=== PATIENT | male | born 1940 | race Caucasian/White ===

== ENCOUNTER 2018-08-05 10:38 | Emergency (ER) | payer MEDICARE, BC ==
[2018-08-05] MEDS ORDERED: Sodium Chloride 0.9% 1,000 ML IV ONE ×2 (10:46→13:08)
[2018-08-05] MEDS: Sodium Chloride 0.9% 10 ML Syringe FLUSH PRN ×2 (10:55→13:14)
[2018-08-05 10:59] VITALS: BP 100/64
--- NOTE | 2018-08-05 11:55 | EDM.PDOC ---
ED HPI GENERAL MEDICAL PROBLEM - General Chief Complaint: Syncope Stated Complaint: purnima ambulance Time Seen by Provider: 08/05/18 10:38 Source of Information: Reports: Patient History Limitations: Reports: No Limitations - History of Present Illness INITIAL COMMENTS - FREE TEXT/NARRATIVE: The patient is a 78-year-old male with a history of lung cancer status post lobectomy, radiation, chemotherapy, currently on chemotherapy, who presents with weakness. He felt fine yesterday. Today he felt lightheaded like he might pass out. He did not actually pass out. He also feels mildly short of breath. No change in his chronic cough. No fever. No chest pain. States that he did have some leg pain this morning and took 2 tablets of tramadol. No leg swelling. States he has been in bed a lot lately. Is feeling generally weak but at this time has no pain or other specific complaint. Last chemotherapy was about a week and a half ago, he is due for another round in a few days. No abdominal pain, vomiting, or diarrhea. States that his oral intake has been poor due to lack of appetite. He has been losing weight. No urinary symptoms. Treatments SHACTOR: Reports: IV/IO - Related Data Allergies Allergy/AdvReac Type Severity Reaction Status Date / Time Ndewumi-Xbi-Ees Reductase Allergy Cannot Verified 08/05/18 10:48 Inhibitor Remember Home Meds: Home Meds Albuterol [Proventil HFA] 1 puff INH Q6HR PRN 01/24/16 [History] Carvedilol [Coreg] 6.25 mg PO BID 01/24/16 [History] Clopidogrel [Plavix] 75 mg PO DAILY 01/24/16 [History] HYDROmorphone [Dilaudid] 4 mg PO Q6H PRN 01/24/16 [History] amLODIPine [Norvasc] 2.5 mg PO DAILY 01/24/16 [History] traMADol [Ultram] 50 mg PO Q8H PRN 02/24/16 [History] Sulfamethoxazole/Trimethoprim [Bactrim Ds Tablet] 1 tab PO Q12HR #9 tablet 02/24 [Rx] Past Medical History HEENT History: Reports: Cataract Cardiovascular History: Reports: CAD, High Cholesterol, Hypertension, PA, Stents Respiratory History: Reports: COPD Gastrointestinal History: Reports: GERD, PUD Genitourinary History: Reports: Renal Calculus Musculoskeletal History: Reports: Osteoarthritis Neurological History: Reports: Neuropathy, Peripheral Psychiatric History: Reports: None Endocrine/Metabolic History: Reports: None Hematologic History: Reports: None Immunologic History: Reports: None Oncologic (Cancer) History: Reports: Lung Other Oncologic History: small cell carcinoma. Pt had 2 rounds of chemo and is scheduled to have 2 more rounds. Dermatologic History: Reports: None - Infectious Disease History Infectious Disease History: Reports: None - Past Surgical History HEENT Surgical History: Reports: Cataract Surgery Cardiovascular Surgical History: Reports: Carotid Stents Respiratory Surgical History: Reports: Lung Resection Other GI Surgeries/Procedures: "Stent in my stomach" Endocrine Surgical History: Reports: None Other Musculoskeletal Surgeries/Procedures:: Spinal fusion Oncologic Surgical History: Reports: Lobectomy, Other (See Below) Social & Family History - Family History Family Medical History: Noncontributory - Tobacco Use Smoking Status *Q: Current Status Unknown - Living Situation & Occupation Living situation: Reports: , with Spouse Occupation: Retired ED ROS GENERAL - Review of Systems Review Of Systems: See Below Constitutional: Reports: Weakness, Fatigue. Denies: Fever HEENT: Reports: No Symptoms Respiratory: Denies: Shortness of Breath Cardiovascular: Denies: Chest Pain Endocrine: Reports: Fatigue GI/Abdominal: Reports: Anorexia. Denies: Vomiting : Reports: No Symptoms. Denies: Dysuria Musculoskeletal: Reports: No Symptoms Skin: Reports: No Symptoms Neurological: Reports: No Symptoms Psychiatric: Reports: No Symptoms Hematologic/Lymphatic: Reports: No Symptoms Immunologic: Reports: No Symptoms ED EXAM, NEURO - Physical Exam Exam: See Below Exam Limited By: No Limitations General Appearance: Alert, WD/WN, No Apparent Distress Eye Exam: Bilateral Eye: Normal Inspection, PERRL Ears: Normal External Exam Nose: Normal Inspection Throat/Mouth: Normal Inspection, Normal Oropharynx, Normal Voice, No Airway Compromise Head Exam: Atraumatic, Normocephalic Neck: Normal Inspection, Supple Respiratory/Chest: No Respiratory Distress, Lungs Clear, Normal Breath Sounds, Chest Non-Tender Cardiovascular: Normal Peripheral Pulses, Regular Rate, Rhythm, No Edema GI/Abdominal: Soft, Non-Tender, No Distention Neurological: Alert, Normal Mood/Affect, CN II-XII Intact, No Motor/Sensory Deficits, Oriented x 3 Extremities: Normal Inspection Psychiatric: Normal Affect, Normal Mood Skin Exam: Warm, Dry, Intact, Normal Color, No Rash Course - Vital Signs Last Recorded V/S: Last Vital Signs Temp 36.0 C 08/05/18 10:48 Pulse 61 08/05/18 10:48 Resp 16 08/05/18 10:48 BP 100/64 08/05/18 10:48 Pulse Ox 95 08/05/18 10:48 - Orders/Labs/Meds Orders: Active Orders 24 hr Category Date Time Status EKG 12 Lead [EKG Documentation Completion] [RC] STAT Care 08/05/18 10:40 Active Peripheral IV Care [RC] . DIRECTED Care 08/05/18 10:46 Active Peripheral IV Care [RC] . DIRECTED Care 08/05/18 10:46 Active Ang Chest [CT] Stat Exams 08/05/18 11:50 Taken Chest 1V Frontal [CR] Stat Exams 08/05/18 10:46 Taken CULTURE URINE [RM] Stat Lab 08/05/18 12:35 Received Sodium Chloride 0.9% [Saline Flush] Med 08/05/18 10:46 Active 10 ml FLUSH ASDIRECTED PRN Peripheral IV Insertion Adult [OM.PC] Routine Oth 08/05/18 10:46 Ordered Medication Orders Sodium Chloride (Saline Flush) 10 ml FLUSH ASDIRECTED PRN PRN Reason: Keep Vein Open Last Admin: 08/05/18 13:14 Dose: 10 ml Admin: 08/05/18 10:55 Dose: 10 ml Labs: Laboratory Tests 08/05/18 08/05/18 08/05/18 Range/Units 11:10 11:10 12:35 WBC 5.13 (4.23-9.07) K/mm3 RBC 3.89 L (4.63-6.08) M/mm3 Hgb 11.8 L (13.7-17.5) gm/L Hct 35.0 L (40.1-51.0) % MCV 90.0 (79.0-92.2) fl MCH 30.3 (25.7-32.2) pg MCHC 33.7 (32.2-35.5) g/dl RDW Std Deviation 49.6 H (35.1-43.9) fL Plt Count 166 (163-337) K/mm3 MPV 8.8 L (9.4-12.3) fl Neut % (Auto) 27.7 L (34.0-67.9) % Lymph % (Auto) 41.3 (21.8-53.1) % [place] % (Auto) 19.7 H (5.3-12.2) % Eos % (Auto) 10.3 H (0.8-7.0) Baso % (Auto) 0.6 (0.1-1.2) % Neut # (Auto) 1.42 L (1.78-5.38) K/mm3 Lymph # (Auto) 2.12 (1.32-3.57) K/mm3 [place] # (Auto) 1.01 H (0.30-0.82) K/mm3 Eos # (Auto) 0.53 (0.04-0.54) K/mm3 Baso # (Auto) 0.03 (0.01-0.08) K/mm3 Manual Slide Review Normal smear Sodium 130 L (136-145) mEq/L Potassium 4.0 (3.5-5.1) mEq/L Chloride 100 (98-107) mEq/L Carbon Dioxide 25 (21-32) mEq/L Anion Gap 9.0 (5-15) BUN 4 L (7-18) mg/dL Creatinine 1.1 (0.7-1.3) mg/dL Est Cr Clr Drug Dosing 61.54 mL/min Estimated GFR (MDRD) > 60 (>60) mL/min BUN/Creatinine Ratio 3.6 L (14-18) Glucose 108 (83-115) mg/dL Calcium 9.0 (8.5-10.1) mg/dL Magnesium 1.7 L (1.8-2.4) mg/dl Total Bilirubin 0.5 (0.2-1.0) mg/dL AST 26 (15-37) U/L ALT 26 (16-63) U/L Alkaline Phosphatase 79 (46-116) U/L Troponin I < 0.017 (0.00-0.056) ng/mL Total Protein 5.7 L (6.4-8.2) g/dl Albumin 2.7 L (3.4-5.0) g/dl Globulin 3.0 gm/dL Albumin/Globulin Ratio 0.9 L (1-2) Urine Color Yellow (Yellow) Urine Appearance Slt cloudy H (Clear) Urine pH 6.0 (5.0-8.0) Ur Specific [place] 1.025 (1.005-1.030) Urine Protein 1+ H (Negative) Urine Glucose (UA) Negative (Negative) Urine Ketones Negative (Negative) Urine Occult Blood Negative (Negative) Urine Nitrite Negative (Negative) Urine Bilirubin 1+ H (Negative) Urine Urobilinogen 1.0 (0.2-1.0) Ur Leukocyte Esterase 1+ H (Negative) Urine RBC 0-5 (0-5) /hpf Urine WBC 5-10 H (0-5) /hpf Ur Epithelial Cells 0-5 (0-5) /hpf Urine Bacteria Few (FEW) /hpf Hyaline Casts 0-5 (0-5) /lpf Urine Mucus Few (FEW) /hpf Meds: Medications Generic Name Dose Route Start Last Admin Trade Name Maurice PRN Reason Stop Dose Admin Sodium Chloride 10 ml 08/05/18 10:46 08/05/18 13:14 Saline Flush FLUSH 10 ml ASDIRECTED PRN Administration Keep Vein Open Discontinued Medications Generic Name Dose Route Start Last Admin Trade Name Fremarcio PRN Reason Stop Dose Admin Sodium Chloride 1,000 mls @ 1,000 mls/hr 08/05/18 10:46 08/05/18 10:55 Normal Saline IV 08/05/18 11:45 1,000 mls/hr ONETIME ONE Administration Sodium Chloride 100 mls @ 4 mls/sec 08/05/18 12:55 08/05/18 13:14 Normal Saline IV 08/05/18 12:56 4 mls/sec ONETIME ONE Administration Sodium Chloride Confirm 08/05/18 12:55 08/05/18 13:10 Normal Saline Administered 08/05/18 12:56 Not Given Dose 1,000 mls @ as directed .ROUTE .STK-MED ONE Sodium Chloride 1,000 mls @ 999 mls/hr 08/05/18 13:08 08/05/18 13:00 Normal Saline IV 08/05/18 14:08 999 mls/hr ONETIME ONE Administration Iopamidol 100 ml 08/05/18 12:55 08/05/18 13:13 Isovue-370 (76%) IVPUSH 08/05/18 12:56 100 ml ONETIME ONE Administration - Re-Assessments/Exams Free Text/Narrative Re-Assessment/Exam: 08/05/18 11:55 Chest x-ray shows an apparent right hilar area mass. No infiltrate or pneumothorax. EKG showed normal sinus rhythm, mildly prolonged MN interval at 247, intervals otherwise normal, no significant ST/T-wave abnormality. Labs show sodium of 130 which is baseline for him, low albumin, otherwise unremarkable. 08/05/18 14:13 CT chest angiogram with contrast shows no evidence of PE, no aneurysm or dissection. Opacities around the right hilum may represent adenopathy long cancer or pneumonia. Opacities in the lingula and both lower lobes may represent atelectasis or pneumonia. Patient has not had a fever, there is no change in his chronic cough, and he meets no Sirs criteria. Therefore I suspect that the opacities seen on chest CT are more likely explained by cancerous disease and/or atelectasis. Will not treat for now. On UA, he does have 5-10 white blood cells and LCE positive, no urinary symptoms, will send culture. Discussed these findings with the patient. He is feeling better after a liter of fluid. His blood pressures have been soft mostly in the 95-110 range systolic but he is feeling better. He did take both of his carvedilol and his amlodipine this morning. Advised him to discontinue the amlodipine for now. He does have follow-up scheduled for 3 days from now with his oncologist. Discussed return precautions. Departure - Departure Time of Disposition: 13:59 Disposition: Home, Self-Care 01 Clinical Impression: Weakness, Dizziness - Discharge Information Instructions: Weakness, Srle-rm-[id number], Dizziness, [id number] Referrals: Allan Ruiz MD [Primary Care Provider] - Forms: ED Department Discharge Additional Instructions: 1. Drink plenty of fluids 2. Follow up with Dr. Nuñez and /or your oncologist as soon as possible for further care 3. Return to the ED as needed for worsening weakness/dizziness, or new concerning symptoms such as fever, worsening cough/SOB, severe pain, or other concerning symptoms. 4. A urine culture has been sent. If you need another round of antibiotics, you will be contacted by us. - My Orders Last 24 Hours: My Active Orders 08/05/18 10:40 EKG 12 Lead [EKG Documentation Completion] [RC] STAT 08/05/18 10:46 Peripheral IV Care [RC] . DIRECTED Peripheral IV Care [RC] . DIRECTED Chest 1V Frontal [CR] Stat Sodium Chloride 0.9% [Saline Flush] 10 ml FLUSH ASDIRECTED PRN Peripheral IV Insertion Adult [OM.PC] Routine 08/05/18 11:50 Ang Chest [CT] Stat 08/05/18 12:35 CULTURE URINE [RM] Stat - Assessment/Plan Last 24 Hours: My Active Orders 08/05/18 10:40 EKG 12 Lead [EKG Documentation Completion] [RC] STAT 08/05/18 10:46 Peripheral IV Care [RC] . DIRECTED Peripheral IV Care [RC] . DIRECTED Chest 1V Frontal [CR] Stat Sodium Chloride 0.9% [Saline Flush] 10 ml FLUSH ASDIRECTED PRN Peripheral IV Insertion Adult [OM.PC] Routine 08/05/18 11:50 Ang Chest [CT] Stat 08/05/18 12:35 CULTURE URINE [RM] Stat
[2018-08-05] MEDS ORDERED: Iopamidol 755 Mg/ML 100 ML Bottle IVPUSH ONE (12:55)
[2018-08-05] MEDS ORDERED: Sodium Chloride 0.9% 100 ML IV ONE (12:55)
[2018-08-05] MEDS ORDERED: Sodium Chloride 0.9% 1,000 ML ONE (12:55)
--- NOTE | 2018-08-05 17:02 | CR ---
Chest: Portable view of the chest was obtained. Comparison: Prior chest x-ray of 02/25/16. Prominent right hilum is seen. Infusion port is seen on the left side. Lungs show no acute parenchymal change. Heart size is normal. Tortuous thoracic aorta is seen. Scattered degenerative change within the spine with scoliosis. Prior left shoulder surgery is noted. Impression: 1. Prominent right hilum. Uncertain if this represents prior surgery, difficult to exclude adenopathy. Chest CT would be needed to further evaluate if clinically indicated. 2. Other incidental findings. Nothing acute is otherwise seen. Diagnostic code #9
--- NOTE | 2018-08-05 17:54 | CT ---
CT chest Technique: Multiple axial sections through the chest are obtained. Intravenous contrast was utilized. Study has been performed as a pulmonary angiogram protocol. Comparison: Prior chest CT of 04/27/12. Findings: Pulmonary arteries are well opacified. No filling defects are seen to indicate pulmonary embolism. Mediastinum and hilar regions show no adenopathy. Atherosclerotic calcification is noted within the thoracic aorta. Soft tissue density is seen within the right hilum surrounding pulmonary arteries. Small right sided pleural effusion is seen as well as trace left-sided pleural effusion. Emphysematous changes are seen. Emphysematous bleb is seen within the right upper lung measuring 6.1 cm. 9 mm pulmonary nodule is noted within the approximate superior segment of the right lower lung. No additional nodule is seen. Slight parenchymal densities are noted within the right lower lung and left lower lung as well as lesser density within the lingula. Findings may represent pulmonary fibrosis which represent an interval change from prior exam, infectious pneumonia is possible. Small pericardial effusion is seen. Small portion of the visualized upper abdominal structures are within normal limits. Bone window settings were reviewed which show scattered degenerative endplate spurring within the spine. Impression: 1. No findings of pulmonary embolism. 2. 9 mm nodule within the approximate superior segment of the right lower lung, follow-up recommended in 6 months to evaluate for stability. A follow-up would occur in January,. 3. Increased density within both lung bases as well as minimal density within the lingula which may represent pneumonia or fibrosis. 4. Small right sided pleural effusion and minimal pericardial effusion. Trace left-sided pleural effusion is seen. 5. Emphysematous change. 6. Soft tissue density within the right hilum. Differential includes adenopathy, soft tissue density from previous radiation therapy as well as unlikely pneumonia. Diagnostic code #9 I agree with preliminary report issued by [facility] ([facility] report finalized on 08/05/18, 2:42 PM Central Time)
== END 2018-08-05 14:20 | disposition home or self-care (01) ==
LOC: JD.ED 10:38
DX: R53.1 Weakness (principal); R42 Dizziness and giddiness; I10 Essential (primary) hypertension; E78.00 Pure hypercholesterolemia, unspecified; I25.10 Atherosclerotic heart disease of native coronary artery without angina pectoris; J44.9 Chronic obstructive pulmonary disease, unspecified; Z79.899 Other long term (current) drug therapy; Z88.8 Allergy status to other drugs, medicaments and biological substances
CPT/HCPCS: 36415; 71045; 71275; 80053; 81001; 83735; 84484; 85025; 87086; 93005; 96360; 96361; 99285; J7030; J7040; J7050; Q9967; 87088; 87184; 93010; 99284-25